=== PATIENT | male | born 1940 | race Caucasian/White ===

== ENCOUNTER → 2016-08-16 | Outpatient (CLI) | payer MEDICARE ==
[2016-08-16 09:13] LABS: BASOPHILS % (AUTO) 1 % (0-2); EOSINOPHILS # (AUTO) 0.3 10^3uL; EOSINOPHILS % (AUTO) 5 % (0-4); LYMPHOCYTES # (AUTO) 1.6 X10^3; MEAN CORPUSCULAR HEMOGLOBIN 30.1 PG (26.0-34.0); MEAN CORPUSCULAR HGB CONC 34.3 g/dL (31.0-37.0); MEAN CORPUSCULAR VOLUME 88 FL (80-100); MEAN PLATELET VOLUME 8.8 FL (6.0-9.5); MONOCYTES # (AUTO) 0.5 X10^3; MONOCYTES % (AUTO) 8 % (3-11); NEUTROPHILS # (AUTO) 3.6 X10^3; NEUTROPHILS % (AUTO) 60 % (51-67); PLATELET COUNT 206 10^3uL (150-450); WHITE BLOOD COUNT 5.95 10^3uL (4.0-11.0)
[2016-08-16 09:17] LABS: BILIRUBIN,URINE Negative (Negative); CLARITY,URINE Clear; COLOR,URINE Yellow; GLUCOSE, URINE (UA) Negative (Negative); LEUKOCYTE ESTERASE ,URINE Negative (Negative); UROBILINOGEN,URINE 0.2 mg/dL (0.2-1.0)
[2016-08-16 09:25] LABS: ALBUMIN 4.5 g/dL (3.4-5.0); ANION GAP 13.4 MEQ/L (3-15); TOTAL PROTEIN 7.5 g/dL (6.4-8.5)
== END ==
LOC: LAB 09:00
PROVIDERS: ATTEND Family Medicine
DX: I49.8 Other specified cardiac arrhythmias (principal); J44.1 Chronic obstructive pulmonary disease with (acute) exacerbation; R79.89 Other specified abnormal findings of blood chemistry; E78.2 Mixed hyperlipidemia; D50.8 Other iron deficiency anemias; N39.0 Urinary tract infection, site not specified; G72.0 Drug-induced myopathy; K71.2 Toxic liver disease with acute hepatitis; Z12.5 Encounter for screening for malignant neoplasm of prostate; E03.4 Atrophy of thyroid (acquired)
CPT/HCPCS: 36415; 71020; 80053; 80061; 81003; 82550; 82977; 84436; 84443; 85025; 93005; G0103; 84153